=== PATIENT | male | born 1960 | race Caucasian/White ===

== ENCOUNTER 2020-05-07 17:14 | Emergency (ER) | payer OTHER ==
[2020-05-07] MEDS ORDERED: Ondansetron 4 MG/2 ML SDV IVPUSH ONE (18:25)
[2020-05-07] MEDS ORDERED: Sodium Chloride 0.9% 1,000 ML IV ONE (18:25)
[2020-05-07] MEDS ORDERED: ceFAZolin 1 GM in Premix Bag 1 BAG IV ONE (18:25)
[2020-05-07] MEDS ORDERED: Sodium Chloride 0.9% 10 ML Syringe FLUSH PRN (18:25)
[2020-05-07] MEDS ORDERED: Morphine 2 MG/ML SYRINGE IVPUSH PRN (18:25)
[2020-05-07] MEDS ORDERED: Diphtheria,Pertussis(Acell),Tetanus Vaccine 0.5 ML Syringe IM ONE (18:25)
--- NOTE | 2020-05-07 18:36 | EDM.PDOC ---
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 - Related Data Allergies Allergy/AdvReac Type Severity Reaction Status Date / Time No Known Allergies Allergy Verified 05/07/20 17:31 Home Meds: Home Meds Escitalopram [Lexapro] 10 mg PO DAILY 05/07/20 [History] Levothyroxine 125 mcg PO DAILY 05/07/20 [History] Pantoprazole [ProTONIX] 40 mg PO DAILY 05/07/20 [History] Pramipexole [Mirapex] 0.5 mg PO ASDIRECTED 05/07/20 [History] Pregabalin [Lyrica] 150 mg PO BID 05/07/20 [History] atorvaSTATin [Lipitor] 20 mg PO DAILY 05/07/20 [History] Past Medical History Musculoskeletal History: Reports: Fracture Endocrine/Metabolic History: Reports: Hypothyroidism - Infectious Disease History Infectious Disease History: Reports: Chicken Pox, Measles, Mumps - Past Surgical History Musculoskeletal Surgical History: Reports: Arthroscopic Knee Social & Family History - Tobacco Use Tobacco Use Status *Q: Never Tobacco User - Caffeine Use Caffeine Use: Reports: Coffee, Energy Drinks, Soda - Recreational Drug Use Recreational Drug Use: No Review of Systems - Review of Systems Review Of Systems: Comprehensive ROS is negative, except as noted in HPI. Constitutional: Reports: No Symptoms Eyes: Reports: No Symptoms Ears: Reports: No Symptoms Nose: Reports: No Symptoms Mouth/Throat: Reports: No Symptoms Respiratory: Reports: No Symptoms Cardiovascular: Reports: No Symptoms GI/Abdominal: Reports: No Symptoms Genitourinary: Reports: No Symptoms Musculoskeletal: Reports: Hand Pain (left hand--has nail from nail gun embedded in 1st metacarpal/lateral thumb side of hand) Skin: Reports: Wound Neurological: Reports: No Symptoms Psychiatric: Reports: No Symptoms ED EXAM, GENERAL - Physical Exam Exam: See Below Exam Limited By: No Limitations General Appearance: Alert, WD/WN, Mild Distress (secondary to pain in left hand) Eye Exam: Bilateral Eye: EOMI, Normal Inspection, PERRL Ears: Normal External Exam Nose: Normal Inspection Throat/Mouth: Normal Inspection, Normal Lips Head: Atraumatic, Normocephalic Neck: Normal Inspection, Supple, Non-Tender, Full Range of Motion. No: Lymphadenopathy (R), Lymphadenopathy (L) Respiratory/Chest: No Respiratory Distress, Lungs Clear, Normal Breath Sounds, No Accessory Muscle Use, Chest Non-Tender Cardiovascular: Normal Peripheral Pulses, Regular Rate, Rhythm, No Edema, No Murmur Peripheral Pulses: 2+: Radial (L) (distal neurovascular intact of left thumb & index finger, brisk cap refill), Radial (R) GI/Abdominal: Normal Bowel Sounds, Soft, Non-Tender (Male) Exam: Deferred Rectal (Males) Exam: Deferred Back Exam: Normal Inspection, Full Range of Motion Extremities: No Pedal Edema, Normal Capillary Refill, Other (has noted nail embedded in lateral hand/thumb side to head of nail; per x-ray appears to be through the 1st metacarpal & possibly 2nd) Neurological: Alert, Oriented, Normal Cognition, No Motor/Sensory Deficits Psychiatric: Normal Affect, Normal Mood Skin Exam: Warm, Dry, Normal Color, No Rash, Wound/Incision (has noted nail embedded in lateral hand/thumb side to head of nail; per x-ray appears to be through the 1st metacarpal & possibly 2nd; no active bleeding from site at this time of exam) Course - Vital Signs Text/Narrative:: 1804--case was d/w Dr Izaguirre, Orthopedics by Dr Officer, ER after review of plain film. Dr Izaguirre, Ortho will be in the ER shortly to see patient/further management of care. 1819--d/w patient ER findings and plan of care to include Orthopedics coming in to examine/determine next course of action. recommend update of tetnus status which he agrees. will give dose of IV ABX as well as pain medication at this time. 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 for the following over the last 6 months 04/04/2020 1 12/01/2019 04/04/2020 Pregabalin 150 Mg Capsule 90.00 30 Pa Hel [id number] Sei ([id number]) 43 3.01 LME Comm Ins [place] 03/05/2020 1 12/01/2019 03/05/2020 Pregabalin 150 Mg Capsule 90.00 30 Pa Hel [id number] Sei ([id number]) 33 3.01 [place] 02/08/2020 1 12/01/2019 02/08/2020 Pregabalin 150 Mg Capsule 90.00 30 Pa Hel [id number] Sei ([id number]) 23 3.01 [place] 01/08/2020 1 12/01/2019 01/08/2020 Pregabalin 150 Mg Capsule 90.00 30 Pa Hel [id number] Sei ([id number]) 1 3.01 LME Medicaid [place] 12/13/2019 1 12/13/2019 Hydrocodone-Acetamin 7.5-325 12.00 3 Fr Men [id number] Jonh ([id number]) 0/0 30.00 [place] 12/08/2019 1 12/01/2019 12/08/2019 Pregabalin 150 Mg Capsule 90.00 30 Pa Hel [id number] Sei ([id number]) 0/3 3.01 [place] Last Recorded V/S: Last Vital Signs Temp 96.8 F L 05/07/20 17:29 Pulse 62 05/07/20 17:29 Resp 16 05/07/20 17:29 BP 152/89 H 05/07/20 17:29 Pulse Ox 100 05/07/20 17:29 - Orders/Labs/Meds Orders: Active Orders 24 hr Category Date Time Status Notify Provider Consults [RC] ASDIRECTED Care 05/07/20 19:18 Ordered Vaccines to be Administered [RC] PER UNIT ROUTINE Care 05/07/20 18:28 Active Consult to Orthopedics [CONS] Routine Cons 05/07/20 19:16 Ordered Hand Comp Min 3V Lt [CR] Stat Exams 05/07/20 17:34 Taken Morphine Med 05/07/20 18:25 Active 2 mg IVPUSH Q1H PRN Sodium Chloride 0.9% [Normal Saline] 1,000 ml Med 05/07/20 18:25 Active IV .BOLUS Sodium Chloride 0.9% [Saline Flush] Med 05/07/20 18:25 Active 10 ml FLUSH ASDIRECTED PRN ceFAZolin [Ancef] 1 gm Med 05/07/20 19:12 Active Sodium Chloride 0.9% [Normal Saline] 50 ml IV ONETIME Saline Lock Insert [OM.PC] Routine Oth 05/07/20 18:25 Ordered Medication Orders Sodium Chloride (Normal Saline) 1,000 mls @ 500 mls/hr IV .BOLUS ONE Stop: 05/07/20 20:24 Last Admin: 05/07/20 18:36 Dose: 500 mls/hr Documented by: BOBO Cefazolin Sodium 1 gm/ Sodium (Chloride) 50 mls @ 100 mls/hr IV ONETIME ONE Stop: 05/07/20 19:41 Last Admin: 05/07/20 19:13 Dose: 100 mls/hr Documented by: BRENDA Morphine Sulfate (Morphine) 2 mg IVPUSH Q1H PRN PRN Reason: Pain Last Admin: 05/07/20 18:36 Dose: 2 mg Documented by: BOBO Sodium Chloride (Saline Flush) 10 ml FLUSH ASDIRECTED PRN PRN Reason: Keep Vein Open Last Admin: 05/07/20 18:40 Dose: 10 ml Documented by: BOBO Meds: Medications Generic Name Dose Route Start Last Admin Trade Name Freq PRN Reason Stop Dose Admin Sodium Chloride 1,000 mls @ 500 mls/hr 05/07/20 18:25 05/07/20 18:36 Normal Saline IV 05/07/20 20:24 500 mls/hr .BOLUS ONE Administration Cefazolin Sodium 1 gm/ Sodium 50 mls @ 100 mls/hr 05/07/20 19:12 05/07/20 19:13 Chloride IV 05/07/20 19:41 100 mls/hr ONETIME ONE Administration Morphine Sulfate 2 mg 05/07/20 18:25 05/07/20 18:36 Morphine IVPUSH 2 mg Q1H PRN Administration Pain Sodium Chloride 10 ml 05/07/20 18:25 05/07/20 18:40 Saline Flush FLUSH 10 ml ASDIRECTED PRN Administration Keep Vein Open Discontinued Medications Generic Name Dose Route Start Last Admin Trade Name Freq PRN Reason Stop Dose Admin Cefazolin Sodium Confirm 05/07/20 19:04 Ancef Administered 05/07/20 19:05 Dose 1 gm .ROUTE .STK-MED ONE Diphtheria/Tetanus/Acell Pertussis 0.5 ml 05/07/20 18:25 05/07/20 18:38 Boostrix IM 05/07/20 18:26 0.5 ml .ONCE ONE Administration Cefazolin Sodium/Dextrose 1 gm 50 mls @ 100 mls/hr 05/07/20 18:25 / Premix IV 05/07/20 18:54 ONETIME ONE Sodium Chloride Confirm 05/07/20 19:04 Normal Saline Administered 05/07/20 19:05 Dose 50 mls @ as directed .ROUTE .STK-MED ONE Ondansetron HCl 4 mg 05/07/20 18:25 05/07/20 18:36 Zofran IVPUSH 05/07/20 18:26 4 mg ONETIME ONE Administration - Re-Assessments/Exams Free Text/Narrative Re-Assessment/Exam: 05/07/20 19:18 Dr Izaguirre, Orthopedics here in the ER and has pulled nail from hand under local in the ER. Request that patient be placed on 5 days Keflex as well as pain medications. f/u with Dr Izaguirre as directed, patient to contact clinic for ER follow up appointment. verbalized understanding/agreement with plan of care Free Text/Narrative Re-Assessment/Exam: 05/07/20 19:35 Rx given for [place] 5/325 take 1 tab every 4-6 hours #4 from [facility] tonight [place] 5/325 take 1 tab every 6-8 hours #6 pharmacy rx Keflex 500mg take 1 tab bid x 7 days #14 pharmacy rx Departure - Departure Time of Disposition: 19:20 Disposition: Home, Self-Care 01 Condition: Good Clinical Impression: Injury of hand by nail gun, Fracture of first metacarpal bone of left hand - Discharge Information *PRESCRIPTION DRUG MONITORING PROGRAM REVIEWED*: Yes *COPY OF PRESCRIPTION DRUG MONITORING REPORT IN PATIENT KAVITA: Yes Instructions: Puncture Wound, Metacarpal Fracture, [id number], Pain Medicine Instructions, [id number], How to Change Your Wound Dressing, [id number] Referrals: PCP,None [Primary Care Provider] - Forms: ED Department Discharge Additional Instructions: CONTACT DR IZAGUIRRE, ORTHOPEDICS OFFICE TOMORROW FOR ER FOLLOW UP DISCUSSED KEEP WOUND CLEAN AND DRY, APPLY OVER THE COUNTER ANTIBIOTIC OINTMENT AND COVER WITH BANDAGE MAY SHOWER NORMALLY -- WASH HANDS FREQUENTLY IF SOILED OR MORE THAN 5 USES OF 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 IN DIRTY ENVIRONMENT UNTIL CLEARED BY DR IZAGUIRRE, ORTHOPEDICS YOUR TETNUS IMMUNIZATION WAS UPDATED TODAY IN THE ER--YOUR NEXT IMMUNIZATION IS DUE IN 10 YEARS, SOONER IF ANOTHER INUURY OCCURS Sepsis Event Note (ED) - Evaluation Sepsis Screening Result: No Definite Risk - Focused Exam Vital Signs: Vital Signs Temp Pulse Resp BP Pulse Ox 05/07/20 17:29 96.8 F L 62 16 152/89 H 100 - My Orders Last 24 Hours: My Active Orders 05/07/20 18:25 Morphine 2 mg IVPUSH Q1H PRN Sodium Chloride 0.9% [Normal Saline] 1,000 ml IV .BOLUS Sodium Chloride 0.9% [Saline Flush] 10 ml FLUSH ASDIRECTED PRN Saline Lock Insert [OM.PC] Routine 05/07/20 18:28 Vaccines to be Administered [RC] PER UNIT ROUTINE 05/07/20 19:12 ceFAZolin [Ancef] 1 gm Sodium Chloride 0.9% [Normal Saline] 50 ml IV ONETIME 05/07/20 19:16 Consult to Orthopedics [CONS] Routine 05/07/20 19:18 Notify Provider Consults [RC] ASDIRECTED - Assessment/Plan Last 24 Hours: My Active Orders 05/07/20 18:25 Morphine 2 mg IVPUSH Q1H PRN Sodium Chloride 0.9% [Normal Saline] 1,000 ml IV .BOLUS Sodium Chloride 0.9% [Saline Flush] 10 ml FLUSH ASDIRECTED PRN Saline Lock Insert [OM.PC] Routine 05/07/20 18:28 Vaccines to be Administered [RC] PER UNIT ROUTINE 05/07/20 19:12 ceFAZolin [Ancef] 1 gm Sodium Chloride 0.9% [Normal Saline] 50 ml IV ONETIME 05/07/20 19:16 Consult to Orthopedics [CONS] Routine 05/07/20 19:18 Notify Provider Consults [RC] ASDIRECTED
[2020-05-07] MEDS ORDERED: ceFAZolin 1 GM Vial ONE (19:04)
[2020-05-07] MEDS ORDERED: Sodium Chloride 0.9% 50 ML ONE (19:04)
[2020-05-07] MEDS ORDERED: ceFAZolin 1 GM in Sodium Chloride 0.9% 50 ML IV ONE (19:12)
--- NOTE | 2020-05-08 09:32 | CR ---
Hand Comp Min 3V Lt CLINICAL HISTORY: Trauma FINDINGS: There is a nail entering the thenar region of the hand. The nail tip is close to the second metacarpal but does not appear to have penetrated. There is no fracture or osseous lesion Impression: Nail puncture thenar region of left hand No fracture or obvious bony involvement
== END 2020-05-07 20:04 | disposition home or self-care (01) ==
LOC: JP.ED 17:14
DX: S62.202A Unspecified fracture of first metacarpal bone, left hand, initial encounter for closed fracture (principal); E03.9 Hypothyroidism, unspecified; Z79.899 Other long term (current) drug therapy; Z23 Encounter for immunization; W29.4XXA Contact with nail gun, initial encounter
CPT/HCPCS: 73130; 90471; 90715; 96365; 96375; 99283; J0690; J2270; J2405; J7030